=== PATIENT | female | born 1965 | race Two or more races ===

== ENCOUNTER 2017-01-09 07:46 | Outpatient (CLI) | payer BC, OTHER ==
[2017-01-09 08:27] LABS: BASOPHILS # (AUTO) 0.1 K/uL (0.0-8.0); BASOPHILS % (AUTO) 1.1 % (0.0-2.0); EOSINOPHILS # (AUTO) 0.2 K/uL (0.0-0.7); EOSINOPHILS % (AUTO) 2.7 % (0.0-7.0); HEMATOCRIT 36.9 % (31.2-41.9); HEMOGLOBIN 12.9 g/dL (10.9-14.3); LYMPHOCYTES # (AUTO) 2.4 K/uL (20.0-40.0); LYMPHOCYTES % (AUTO) 34.9 % (20.5-51.5); MEAN CORPUSCULAR HEMOGLOBIN 31.2 uug (24.7-32.8); MEAN CORPUSCULAR HGB CONC 35 g/dL (32.3-35.6); MEAN CORPUSCULAR VOLUME 88.9 fL (75.5-95.3); MONOCYTES # (AUTO) 0.7 K/uL (2.0-10.0); MONOCYTES % (AUTO) 10.7 % (0.0-11.0); NEUTROPHILS # (AUTO) 3.5 K/uL (1.8-8.9); NEUTROPHILS % (AUTO) 50.6 % (38.5-71.5); PLATELET COUNT (AUTO) 248 K/uL (179-408); RED BLOOD CELL COUNT(AUTO) 4.15 MIL/uL (3.63-4.92)
[2017-01-09 08:30] LABS: *BILIRUBIN,URIN NEGATIVE (NEGATIVE); *BLOOD, URINE NEGATIVE (NEGATIVE); *COLOR,URINE YELLOW (YELLOW); *KETONES,URINE NEGATIVE (NEGATIVE); *PROTEIN,URINE NEGATIVE (NEGATIVE); *UROBILINOGEN,URINE 0.2 E.U./dl (NORMAL); LEUKOCYTE ESTERASE ,URINE NEGATIVE (NEGATIVE); NITRITE, URINE NEGATIVE (NEGATIVE); PH,URINE 6.5 (5.0-8.0); UGLUCOSE NEGATIVE (NEGATIVE)
[2017-01-09 08:36] LABS: *CLARITY,URINE HAZY (CLEAR)
[2017-01-09 08:37] LABS: BACTERIA,URINE NONE SEEN /HPF (NONE SEEN); MUCUS,URINE MANY /LPF (0-FEW); RBC,URINE 0-3 /HPF (0-3); SQUAMOUS EPITHELIAL CELL,UR MODERATE /HPF (NONE SEEN); WBC,URINE 0-3 /HPF (0-3)
[2017-01-09 08:38] LABS: THYROID STIMULATING HORMONE 1.041 mIU/mL (0.358-3.740)
[2017-01-09 09:14] LABS: BILIRUBIN,TOTAL 0.3 mg/dL (0.2-1.0); CREATININE 0.8 mg/dL (0.6-1.3); POTASSIUM 3.7 mmol/L (3.5-5.1); TOTAL PROTEIN, SERUM 7.8 g/dL (6.4-8.2)
[2017-01-10 08:08] LABS: ESTRADIOL 195.1 pg/mL (.); FOLLICLE STIMULATION HORMONE 12.6 mIU/mL (.)
== END 2017-01-09 23:59 | disposition home or self-care (01) ==
LOC: LAB 07:46
PROVIDERS: ATTEND Legal Medicine
DX: Z00.01 Encounter for general adult medical examination with abnormal findings (principal); R10.9 Unspecified abdominal pain; N95.9 Unspecified menopausal and perimenopausal disorder
CPT/HCPCS: 36415; 82670; 82746; 83001; 83550; 84443; 85025

== ENCOUNTER 2017-05-29 07:47 | Outpatient (CLI) | payer BC, OTHER ==
[2017-05-29 08:20] LABS: BILIRUBIN,DIRECT 0.1 mg/dL (0.0-0.2); BILIRUBIN,TOTAL 0.3 mg/dL (0.2-1.0)
== END 2017-05-29 23:59 | disposition home or self-care (01) ==
LOC: LAB 07:47
PROVIDERS: ATTEND Legal Medicine
DX: R10.9 Unspecified abdominal pain (principal)
CPT/HCPCS: 36415

== ENCOUNTER 2018-02-25 07:30 | Outpatient (CLI) | payer BC, OTHER ==
[2018-02-25 08:35] LABS: BASOPHILS # (AUTO) 0.1 K/uL (0.0-8.0); BASOPHILS % (AUTO) 0.9 % (0.0-2.0); EOSINOPHILS # (AUTO) 0.1 K/uL (0.0-0.7); HEMATOCRIT 37.3 % (31.2-41.9); LYMPHOCYTES # (AUTO) 2.3 K/uL (20.0-40.0); LYMPHOCYTES % (AUTO) 41.3 % (20.5-51.5); MEAN CORPUSCULAR HEMOGLOBIN 31.2 uug (24.7-32.8); MEAN CORPUSCULAR HGB CONC 35 g/dL (32.3-35.6); MEAN CORPUSCULAR VOLUME 89.8 fL (75.5-95.3); MONOCYTES # (AUTO) 0.6 K/uL (2.0-10.0); MONOCYTES % (AUTO) 10.6 % (0.0-11.0); NEUTROPHILS # (AUTO) 2.5 K/uL (1.8-8.9); NEUTROPHILS % (AUTO) 45.2 % (38.5-71.5); PLATELET COUNT (AUTO) 258 K/uL (179-408); RED BLOOD CELL COUNT(AUTO) 4.16 MIL/uL (3.63-4.92); WHITE BLOOD COUNT (AUTO) 5.6 K/uL (3.8-11.8)
[2018-02-25 08:40] LABS: *BILIRUBIN,URIN NEGATIVE (NEGATIVE); *BLOOD, URINE NEGATIVE (NEGATIVE); *CLARITY,URINE CLEAR (CLEAR); *COLOR,URINE YELLOW (YELLOW); *KETONES,URINE NEGATIVE (NEGATIVE); *PROTEIN,URINE NEGATIVE (NEGATIVE); *UROBILINOGEN,URINE 0.2 E.U./dl (NORMAL); LEUKOCYTE ESTERASE ,URINE 1+ (NEGATIVE); NITRITE, URINE NEGATIVE (NEGATIVE); PH,URINE 6.5 (5.0-8.0); UGLUCOSE NEGATIVE (NEGATIVE)
[2018-02-25 08:47] LABS: BACTERIA,URINE FEW /HPF (NONE SEEN); MUCUS,URINE FEW /LPF (0-FEW); RBC,URINE 0-3 /HPF (0-3); SQUAMOUS EPITHELIAL CELL,UR FEW /HPF (NONE SEEN); WBC,URINE 0-3 /HPF (0-3)
[2018-02-25 09:22] LABS: BILIRUBIN,TOTAL 0.3 mg/dL (0.2-1.0); CREATININE 0.6 mg/dL (0.6-1.3); POTASSIUM 3.6 mmol/L (3.5-5.1); URIC ACID 3.3 mg/dL (2.6-6.0)
== END 2018-02-25 23:59 | disposition home or self-care (01) ==
LOC: LAB 07:30
PROVIDERS: ATTEND Legal Medicine
DX: Z00.00 Encounter for general adult medical examination without abnormal findings (principal)
CPT/HCPCS: 36415; 83550; 84550; 85025

== ENCOUNTER 2019-06-28 07:40 | Outpatient (CLI) | payer BC, OTHER ==
[2019-06-28 08:47] LABS: *BILIRUBIN,URIN NEGATIVE (NEGATIVE); *BLOOD, URINE NEGATIVE (NEGATIVE); *CLARITY,URINE CLEAR (CLEAR); *COLOR,URINE YELLOW (YELLOW); *KETONES,URINE NEGATIVE (NEGATIVE); *UROBILINOGEN,URINE 0.2 E.U./dl (NORMAL); BASOPHILS # (AUTO) 0.1 K/uL (0.0-8.0); BASOPHILS % (AUTO) 1.1 % (0.0-2.0); EOSINOPHILS # (AUTO) 0.1 K/uL (0.0-0.7); EOSINOPHILS % (AUTO) 1.6 % (0.0-7.0); HEMATOCRIT 38.8 % (31.2-41.9); HEMOGLOBIN 13.1 g/dL (10.9-14.3); LEUKOCYTE ESTERASE ,URINE TRACE (NEGATIVE); LYMPHOCYTES # (AUTO) 2.3 K/uL (20.0-40.0); LYMPHOCYTES % (AUTO) 38.4 % (20.5-51.5); MEAN CORPUSCULAR HEMOGLOBIN 30.4 uug (24.7-32.8); MEAN CORPUSCULAR HGB CONC 34 g/dL (32.3-35.6); MEAN CORPUSCULAR VOLUME 89.8 fL (75.5-95.3); MONOCYTES # (AUTO) 0.6 K/uL (2.0-10.0); MONOCYTES % (AUTO) 10.5 % (0.0-11.0); NEUTROPHILS # (AUTO) 2.9 K/uL (1.8-8.9); NEUTROPHILS % (AUTO) 48.4 % (38.5-71.5); NITRITE, URINE NEGATIVE (NEGATIVE); PH,URINE 5.5 (5.0-8.0); PLATELET COUNT (AUTO) 271 K/uL (179-408); RED BLOOD CELL COUNT(AUTO) 4.32 MIL/uL (3.63-4.92); UGLUCOSE NEGATIVE (NEGATIVE)
[2019-06-28 08:55] LABS: MUCUS,URINE MODERATE /LPF (0-FEW)
[2019-06-28 08:56] LABS: BACTERIA,URINE NONE SEEN /HPF (NONE SEEN); RBC,URINE 0-3 /HPF (0-3); SQUAMOUS EPITHELIAL CELL,UR NONE SEEN /HPF (NONE SEEN); WBC,URINE 0-3 /HPF (0-3)
[2019-06-28 09:04] LABS: BILIRUBIN,TOTAL 0.2 mg/dL (0.2-1.0); CREATININE 0.7 mg/dL (0.6-1.3); POTASSIUM 3.5 mmol/L (3.5-5.1); TOTAL PROTEIN, SERUM 8.1 g/dL (6.4-8.2)
[2019-06-28 11:23] LABS: THYROID STIMULATING HORMONE 1.161 mIU/mL (0.358-3.740)
== END 2019-06-28 23:59 | disposition home or self-care (01) ==
LOC: LAB 07:40
PROVIDERS: ATTEND Legal Medicine
DX: Z00.00 Encounter for general adult medical examination without abnormal findings (principal); R10.9 Unspecified abdominal pain
CPT/HCPCS: 36415; 82306; 83550; 84443; 85025

== ENCOUNTER 2020-03-26 06:51 | Outpatient (CLI) | payer BC, OTHER ==
[2020-03-26 08:08] LABS: *BILIRUBIN,URIN NEGATIVE (NEGATIVE); *BLOOD, URINE NEGATIVE (NEGATIVE); *CLARITY,URINE SLIGHTLY CLOUDY (CLEAR); *COLOR,URINE YELLOW (YELLOW); *KETONES,URINE NEGATIVE (NEGATIVE); *UROBILINOGEN,URINE 0.2 E.U./dl (NORMAL); LEUKOCYTE ESTERASE ,URINE 1+ (NEGATIVE); NITRITE, URINE NEGATIVE (NEGATIVE); UGLUCOSE NEGATIVE (NEGATIVE)
[2020-03-26 08:13] LABS: BASOPHILS # (AUTO) 0.1 K/uL (0.0-8.0); EOSINOPHILS # (AUTO) 0.1 K/uL (0.0-0.7); EOSINOPHILS % (AUTO) 0.8 % (0.0-7.0); HEMATOCRIT 39.6 % (31.2-41.9); HEMOGLOBIN 13.3 g/dL (10.9-14.3); LYMPHOCYTES # (AUTO) 2.8 K/uL (20.0-40.0); LYMPHOCYTES % (AUTO) 29.9 % (20.5-51.5); MEAN CORPUSCULAR HEMOGLOBIN 30.8 uug (24.7-32.8); MEAN CORPUSCULAR HGB CONC 34 g/dL (32.3-35.6); MEAN CORPUSCULAR VOLUME 91.5 fL (75.5-95.3); MONOCYTES # (AUTO) 0.9 K/uL (2.0-10.0); NEUTROPHILS # (AUTO) 5.4 K/uL (1.8-8.9); NEUTROPHILS % (AUTO) 58.3 % (38.5-71.5); PLATELET COUNT (AUTO) 284 K/uL (179-408); RED BLOOD CELL COUNT(AUTO) 4.32 MIL/uL (3.63-4.92); WHITE BLOOD COUNT (AUTO) 9.3 K/uL (3.8-11.8)
[2020-03-26 08:16] LABS: BILIRUBIN,TOTAL 0.4 mg/dL (0.2-1.0); CREATININE 0.7 mg/dL (0.6-1.3); TOTAL PROTEIN, SERUM 8.3 g/dL (6.4-8.2)
[2020-03-26 10:19] LABS: THYROID STIMULATING HORMONE 0.854 mIU/mL (0.358-3.740)
[2020-03-26 11:12] LABS: RBC,URINE 0-3 /HPF (0-3)
[2020-03-26 11:13] LABS: BACTERIA,URINE NONE SEEN /HPF (NONE SEEN); SQUAMOUS EPITHELIAL CELL,UR FEW /HPF (NONE SEEN)
== END 2020-03-26 23:59 | disposition home or self-care (01) ==
LOC: LAB 06:51
PROVIDERS: ATTEND Legal Medicine
DX: R10.9 Unspecified abdominal pain (principal); Z00.00 Encounter for general adult medical examination without abnormal findings
CPT/HCPCS: 36415; 82306; 82746; 83550; 84443; 85025; 87086

== ENCOUNTER 2020-04-15 07:49 | Emergency (ER) | payer BC, OTHER ==
[~2020-04-15] VITALS: Ht 152.4 cm; Wt 49.0 kg
[2020-04-15] MEDS ORDERED: IBUPROFEN 600 MG TABLET PO ONE (08:00)
[2020-04-15] MEDS ORDERED: IBUPROFEN 600 MG TABLET ONE (08:15)
--- NOTE | 2020-04-15 09:30 | NUR ---
Patient discharged to home in stable condition. Written and verbal after care instructions given. Patient verbalizes understanding of instructions. Stressed follow up or return to ER for worsening s/s.
--- NOTE | 2020-04-16 17:38 | NUR ---
called with covid result per md order.
== END 2020-04-15 09:30 | disposition home or self-care (01) ==
LOC: ER 07:49
DX: U07.1 COVID-19 (principal); J02.8 Acute pharyngitis due to other specified organisms
CPT/HCPCS: 86403; 87400; 99283; U0003; A4663

== ENCOUNTER 2020-05-02 07:44 | Outpatient (CLI) | payer BC, OTHER | END 2020-05-02 23:59 | disposition home or self-care (01) | LOC: LAB 07:44 | PROVIDERS: ATTEND Legal Medicine | DX: U07.1 COVID-19 (principal) | CPT/HCPCS: 36415 ==

== ENCOUNTER 2020-05-06 08:07 | Emergency (ER) | payer BC, OTHER ==
[~2020-05-06] VITALS: Ht 152.4 cm; Wt 49.0 kg
[2020-05-06] MEDS ORDERED: ACETAMINOPHEN 325 MG TABLET PO ONE (08:30)
--- NOTE | 2020-05-06 08:35 | NUR ---
PT SEEN AND EXAMINED BY DR DAVIS. MEDICATED FOR PAIN PER MD ORDER. BACK TO WAITING ROOM PENDING RADIOLOGY.
[2020-05-06] MEDS ORDERED: ACETAMINOPHEN 325 MG TABLET ONE (08:37)
[2020-05-06 10:34] VITALS: BP 124/76
== END 2020-05-06 10:35 | disposition home or self-care (01) ==
LOC: ER 08:07
DX: S92.514A Nondisplaced fracture of proximal phalanx of right lesser toe(s), initial encounter for closed fracture (principal); W22.01XA Walked into wall, initial encounter; Y92.89 Other specified places as the place of occurrence of the external cause
CPT/HCPCS: 73630; A4663

== ENCOUNTER 2020-05-23 07:40 | Outpatient (CLI) | payer BC, OTHER | END 2020-05-23 23:59 | disposition home or self-care (01) | LOC: LAB 07:40 | DX: N39.3 Stress incontinence (female) (male) (principal) | CPT/HCPCS: 87086 ==

== ENCOUNTER 2021-06-19 07:39 | Outpatient (CLI) | payer BC, OTHER ==
[2021-06-19 08:13] LABS: *BILIRUBIN,URIN NEGATIVE (NEGATIVE); *BLOOD, URINE NEGATIVE (NEGATIVE); *CLARITY,URINE CLEAR (CLEAR); *COLOR,URINE YELLOW (YELLOW); *KETONES,URINE NEGATIVE (NEGATIVE); *UROBILINOGEN,URINE 0.2 E.U./dl (NORMAL); LEUKOCYTE ESTERASE ,URINE NEGATIVE (NEGATIVE); NITRITE, URINE NEGATIVE (NEGATIVE); UGLUCOSE NEGATIVE (NEGATIVE)
[2021-06-19 08:14] LABS: HEMATOCRIT 38.5 % (31.2-41.9); MEAN CORPUSCULAR HEMOGLOBIN 30.9 uug (24.7-32.8); MEAN CORPUSCULAR VOLUME 90.1 fL (75.5-95.3); PLATELET COUNT (AUTO) 292 K/uL (179-408)
[2021-06-19 09:17] LABS: ALANINE AMINOTRANSFERASE 28 U/L (14-59); ALKALINE PHOSPHATASE 83 U/L (50-136); ASPARTATE AMINOTRANSFERASE 18 U/L (15-37); BILIRUBIN,TOTAL 0.4 mg/dL (0.2-1.0); CARBON DIOXIDE 29 mmol/L (21-32); CHLORIDE 102 mmol/L (98-107); CREATININE 0.8 mg/dL (0.6-1.3); GLUCOSE 108 mg/dL (74-106); LACTATE DEHYDROGENASE 166 U/L (81-234); POTASSIUM 3.8 mmol/L (3.5-5.1); TOTAL PROTEIN, SERUM 8.3 g/dL (6.4-8.2); UREA NITROGEN, BLOOD 18 mg/dL (7-18)
[2021-06-19 09:58] LABS: IRON, SERUM 88 ug/dL (50-175)
[2021-06-19 10:14] LABS: *RHEUMATOID FACTOR SCREEN NEGATIVE (NEGATIVE)
[2021-06-19 10:23] LABS: CHOLESTEROL 248 mg/dL (<200); HDL CHOLESTEROL 64 mg/dL (40-60); TRIGLYCERIDES 57 MG/DL (30-150); URIC ACID 3.5 mg/dL (2.6-6.0)
[2021-06-19 11:13] LABS: THYROID STIMULATING HORMONE 0.781 mIU/mL (0.358-3.740)
[2021-06-20 07:10] LABS: *ANTI-SCLERODERMA-70 AB <0.2 AI (0.0-0.9); *SJOGREN'S ANTI-SS-A <0.2 AI (0.0-0.9); *SJOGREN'S ANTI-SS-B <0.2 AI (0.0-0.9); *SMITH ANTIBODIES <0.2 AI (0.0-0.9); ANTI-DNA(DS) AB, QN <1 IU/mL (0-9)
== END 2021-06-19 23:59 | disposition home or self-care (01) ==
LOC: LAB 07:39
PROVIDERS: ATTEND Legal Medicine
DX: E11.9 Type 2 diabetes mellitus without complications (principal); I10 Essential (primary) hypertension; E78.5 Hyperlipidemia, unspecified; E03.9 Hypothyroidism, unspecified; D64.9 Anemia, unspecified; E55.9 Vitamin D deficiency, unspecified; R53.1 Weakness; Z00.00 Encounter for general adult medical examination without abnormal findings
CPT/HCPCS: 36415; 82746; 83550; 83615; 84443; 84550; 85025; 85651; 86038; 86140; 86430; 87086

== ENCOUNTER 2021-07-14 21:15 | Emergency (ER) | payer BC, OTHER ==
[~2021-07-14] VITALS: Ht 152.4 cm; Wt 47.6 kg
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
[2021-07-14 21:51] LABS: MEAN CORPUSCULAR HEMOGLOBIN 31.6 uug (24.7-32.8); MEAN CORPUSCULAR VOLUME 90.7 fL (75.5-95.3); PLATELET COUNT (AUTO) 266 K/uL (179-408)
[2021-07-14 21:56] LABS: CREATININE 0.6 mg/dL (0.6-1.3); POTASSIUM 3.6 mmol/L (3.5-5.1)
[2021-07-14] MEDS ORDERED: OXYC-128 PO (22:05)
[2021-07-14 22:30] VITALS: BP 144/76
== END 2021-07-14 22:31 | disposition home or self-care (01) ==
LOC: ER 21:53
DX: S63.501A Unspecified sprain of right wrist, initial encounter (principal); S30.1XXA Contusion of abdominal wall, initial encounter; V18.0XXA Pedal cycle driver injured in noncollision transport accident in nontraffic accident, initial encounter; Y93.55 Activity, bike riding; Y92.838 Other recreation area as the place of occurrence of the external cause
CPT/HCPCS: 36415; 73110; 85025; A4663

== ENCOUNTER 2022-06-07 15:16 | Emergency (ER) | payer BC, OTHER ==
[~2022-06-07] VITALS: Ht 152.4 cm; Wt 47.2 kg
[~2022-06-07 15:16] MED LIST: OXYC-128 PO
[2022-06-07] MEDS ORDERED: TRAMADOL HCL 50 MG TABLET PO ONE (16:15)
[2022-06-07] MEDS ORDERED: IBUPROFEN 600 MG TABLET PO ONE (16:15)
[2022-06-07] MEDS ORDERED: IBUPROFEN 600 MG TABLET ONE (16:18)
[2022-06-07] MEDS ORDERED: TRAMADOL HCL 50 MG TABLET ONE (16:19)
[2022-06-07] MEDS ORDERED: IBUP-1955 PO (16:21)
[2022-06-07] MEDS ORDERED: TRAM50TA2 PO (16:21)
--- NOTE | 2022-06-07 16:42 | NUR ---
Patient was discharged by MD in stable condition. Verbal after care instructions was given by MD himself. Patient and family verbalized understanding and compliance of instructions. Stressed follow up with primary doctor and ortho doctor or return to ER for worsening s/s.
[2022-06-07 16:44] VITALS: BP 119/73
[2022-06-08] MEDS ORDERED: TRAM50TA2 PO (11:07)
[2022-06-08] MEDS ORDERED: IBUP-1955 PO (11:07)
== END 2022-06-07 16:44 | disposition home or self-care (01) ==
LOC: ER 15:19
DX: S52.502A Unspecified fracture of the lower end of left radius, initial encounter for closed fracture (principal); S52.612A Displaced fracture of left ulna styloid process, initial encounter for closed fracture; V18.4XXA Pedal cycle driver injured in noncollision transport accident in traffic accident, initial encounter; Y93.55 Activity, bike riding; Y92.89 Other specified places as the place of occurrence of the external cause; M81.0 Age-related osteoporosis without current pathological fracture
CPT/HCPCS: 73110; A4663